=== PATIENT | male | born 1945 | race Caucasian/White ===

== ENCOUNTER → 2017-12-30 | Outpatient (CLI) | payer OTHER ==
[~2017-12-30] MED LIST: A/B OTIC15 ML; ADV100/50; ALD25 PO; ARICEPT5 MG PO; ATORVASTATIN CA40 M1 PO; COLACE100 MG PO; COR3 PO; COUMADIN5 MG PO; LASIX40 MG PO; LEVOTHYROXIN0.025 M2 PO; LYRICA75 M1; LYRICA75 M1 PO; METHADONE5 M1 PO; METOPROLOL TART25 M1 PO; NEU300 PO; OXYC PO; OXYCONTIN30 M1 PO; POTASSIUM CHLO10 MEQ PO; PRILOSEC OTC20 M1; PRILOSEC20 MG PO; PROMETH-CODEIN 65 ML PO; SIMVASTATIN10 M1 PO; SINGULAIR5 MG PO; SPIRIVA18 MC1 INH; TES100 PO; TRAZODONE HYDR150 MG PO; TRAZODONE HYDROCHLOR PO; VERAMYST27.5 MCG/1; ZES20 PO; [UNRECOGNIZED DRUG - OTHER] IJ
== END | disposition home or self-care (01) ==
LOC: US 14:00
DX: L03.115 Cellulitis of right lower limb (principal); L03.116 Cellulitis of left lower limb; R53.83 Other fatigue

== ENCOUNTER 2018-05-23 01:36 | Inpatient (IN) | payer OTHER ==
[2018-05-23] VITALS (7 sets, daily range): BP systolic 83–107; BP diastolic 46–64; Ht 175.3 cm; Wt 89.3 kg
[~2018-05-23] VITALS: Ht 175.3 cm; Wt 89.3 kg
[2018-05-23 02:32] LABS: PLATELET COUNT 239 x10^3mcL (130-400); RED CELL DISTRIBUTION WIDTH 15.8 % (11.5-14.5)
[2018-05-23 02:37] LABS: CALCIUM 9.2 mg/dL (8.5-10.1); CARBON DIOXIDE 29.6 mmol/L (21-32); CREATININE SERUM 1.3 mg/dL (0.7-1.3); POTASSIUM SERUM 3.1 mmol/L (3.5-5.1)
[2018-05-23 02:41] LABS: ALBUMIN 3.4 g/dL (3.4-5.0); BILIRUBIN TOTAL 1.33 mg/dL (0.20-1.00); TOTAL PROTEIN, SERUM 8.1 g/dL (6.4-8.2)
[2018-05-23 02:53] LABS: BAND NEUTROPHIL 0 % (0-10); BASOPHIL 0 % (0-2); MONOCYTE 11 % (0-7); SEGMENTED NEUTROPHILS 66 % (37-75)
[2018-05-23 02:56] LABS: PLATELET MORPHOLOGY PLATELETS NORMAL; rbc morphology (normal/abnorm) ABNORMAL (NORMAL)
[2018-05-23] MEDS ORDERED: TRAZODONE150 M1 PO (05:14)
[2018-05-23] MEDS ORDERED: ENDOCET1 TA4 PO (05:15)
[2018-05-23] MEDS ORDERED: ATIVAN1 MG PO (05:17)
[2018-05-23] MEDS ORDERED: GOOD SENSE ASPI81 M3 PO (05:17)
[2018-05-23] MEDS ORDERED: LOSARTAN POTASS25 M1 PO (05:18)
[2018-05-23] MEDS ORDERED: COUMADIN7.5 MG PO (05:19)
[2018-05-23] MEDS ORDERED: COUMADIN6 MG PO (05:20)
[2018-05-23] MEDS ORDERED: FUROSEMIDE80 MG PO (05:28)
[2018-05-23 05:47] LABS: MAGNESIUM 2.1 mg/dL (1.8-2.4); PHOSPHOROUS 3.3 mg/dL (2.5-4.9)
[2018-05-23 05:57] LABS: FREE T4 1.17 ng/dL (0.76-1.46); FREE THYROXINE INDEX 1.8 ug/dL (1.4-4.5); T4(THYROXINE) 4.9 ug/dL (4.7-13.3)
[2018-05-23 06:32] LABS: T3 TOTAL 0.88 ng/mL
[2018-05-23 09:33] LABS: BASOPHIL % 0.4 % (0-2); PLATELET COUNT 216 x10^3mcL (130-400)
[2018-05-23 09:42] LABS: RED CELL DISTRIBUTION WIDTH 17.4 % (11.5-14.5)
[2018-05-23 09:52] LABS: CALCIUM 8.6 mg/dL (8.5-10.1); CARBON DIOXIDE 29.3 mmol/L (21-32); CREATININE SERUM 1.5 mg/dL (0.7-1.3); POTASSIUM SERUM 3.4 mmol/L (3.5-5.1)
[2018-05-23 09:55] LABS: CHOLESTEROL/HDL RATIO 5.9
[2018-05-23 16:58] LABS: microscopic required? NO
[2018-05-23 17:07] LABS: urine erythrocyte NEGATIVE (NEGATIVE)
[2018-05-23 17:15] LABS: AMPHETAMINE QUAL UR NONE DETECTED (See below)
[2018-05-24 05:26] VITALS: BP 98/49
[2018-05-24 06:35] LABS: BASOPHIL % 0.5 % (0-2); PLATELET COUNT 214 x10^3mcL (130-400)
[2018-05-24 07:13] LABS: RED CELL DISTRIBUTION WIDTH 17.5 % (11.5-14.5)
[2018-05-24 09:15] VITALS: BP 90/58
[2018-05-24 10:51] LABS: CALCIUM 8.4 mg/dL (8.5-10.1); CARBON DIOXIDE 31.9 mmol/L (21-32); CREATININE SERUM 1.4 mg/dL (0.7-1.3); MAGNESIUM 2.4 mg/dL (1.8-2.4); PHOSPHOROUS 3.9 mg/dL (2.5-4.9); POTASSIUM SERUM 4.3 mmol/L (3.5-5.1)
[2018-05-24 13:51] VITALS: BP 95/53
[2018-05-24 17:16] VITALS: BP 95/50
[2018-05-24 20:43] VITALS: BP 95/51
[2018-05-25 04:30] VITALS: BP 123/57
[2018-05-25 06:55] LABS: CALCIUM 8.3 mg/dL (8.5-10.1); CHLORIDE SERUM 105 mmol/L (98-107); CREATININE SERUM 1.3 mg/dL (0.7-1.3); GLUCOSE SERUM 131 mg/dL (74-106); SODIUM SERUM 141 mmol/L (136-145)
[2018-05-25 06:57] LABS: BASOPHIL % 0.4 % (0-2); PLATELET COUNT 217 x10^3mcL (130-400)
[2018-05-25 07:04] LABS: RED CELL DISTRIBUTION WIDTH 17.3 % (11.5-14.5)
[2018-05-25 09:16] VITALS: BP 97/52
[2018-05-25 12:06] VITALS: BP 124/71
[2018-05-25] MEDS ORDERED: LASIX40 MG PO (14:44)
[2018-05-25] MEDS ORDERED: ARI10 PO (14:44)
[2018-05-25] MEDS ORDERED: AMIODARONE HCL200 MG PO ×2 (14:46→14:47)
== END 2018-05-25 16:47 | disposition home or self-care (01) | DRG 291 ==
LOC: ED 01:36 → DU 04:21
PROVIDERS: Emergency Medicine; Family Medicine Sports Medicine
DX: I50.43 Acute on chronic combined systolic (congestive) and diastolic (congestive) heart failure (principal); N17.0 Acute kidney failure with tubular necrosis; L03.116 Cellulitis of left lower limb; L03.115 Cellulitis of right lower limb; J44.1 Chronic obstructive pulmonary disease with (acute) exacerbation; I87.8 Other specified disorders of veins; I25.10 Atherosclerotic heart disease of native coronary artery without angina pectoris; I25.5 Ischemic cardiomyopathy; N18.3 Chronic kidney disease, stage 3 (moderate); E11.40 Type 2 diabetes mellitus with diabetic neuropathy, unspecified; E11.51 Type 2 diabetes mellitus with diabetic peripheral angiopathy without gangrene; K21.9 Gastro-esophageal reflux disease without esophagitis; K76.0 Fatty (change of) liver, not elsewhere classified; E03.9 Hypothyroidism, unspecified; F17.210 Nicotine dependence, cigarettes, uncomplicated; M47.9 Spondylosis, unspecified; G89.29 Other chronic pain; D64.9 Anemia, unspecified; F41.9 Anxiety disorder, unspecified; F03.90 Unspecified dementia, unspecified severity, without behavioral disturbance, psychotic disturbance, mood disturbance, and anxiety; E66.9 Obesity, unspecified; Z68.31 Body mass index [BMI] 31.0-31.9, adult; Z95.810 Presence of automatic (implantable) cardiac defibrillator; Z95.1 Presence of aortocoronary bypass graft; Z95.5 Presence of coronary angioplasty implant and graft; Z95.2 Presence of prosthetic heart valve; Z79.01 Long term (current) use of anticoagulants; Z79.891 Long term (current) use of opiate analgesic; Z91.19 Patient's noncompliance with other medical treatment and regimen; Z66 Do not resuscitate
CPT/HCPCS: 82962; 83880; 84439; 97110-GP; J0690; J1885; J1940; J2405; J2765; J3010; J3490; J7030; Q0092

== ENCOUNTER 2018-06-15 10:17 | Inpatient (IN) | payer OTHER ==
[~2018-06-15] VITALS: Ht 175.3 cm; Wt 95.2 kg
[~2018-06-15 10:17] MED LIST changes: +AMIODARONE HCL200 MG PO; +ARI10 PO; +ATIVAN1 MG PO; +COUMADIN6 MG PO; +COUMADIN7.5 MG PO; +ENDOCET1 TA4 PO; +FUROSEMIDE80 MG PO; +GOOD SENSE ASPI81 M3 PO; +LOSARTAN POTASS25 M1 PO; +TRAZODONE150 M1 PO
[2018-06-15 10:23] VITALS: Ht 175.3 cm; Wt 95.2 kg
[2018-06-15 11:53] LABS: BASOPHIL % 0.3 % (0-2); PLATELET COUNT 177 x10^3mcL (130-400)
[2018-06-15 12:49] LABS: CALCIUM 9.2 mg/dL (8.5-10.1); CARBON DIOXIDE 27.3 mmol/L (21-32); CREATININE SERUM 1.3 mg/dL (0.7-1.3); POTASSIUM SERUM 3.1 mmol/L (3.5-5.1)
[2018-06-15 12:53] LABS: BILIRUBIN TOTAL 1.26 mg/dL (0.20-1.00); TOTAL PROTEIN, SERUM 7.5 g/dL (6.4-8.2)
[2018-06-15 12:56] LABS: ALBUMIN 3.2 g/dL (3.4-5.0)
[2018-06-15 13:49] LABS: CHOLESTEROL/HDL RATIO 4.9; MAGNESIUM 1.9 mg/dL (1.8-2.4); PHOSPHOROUS 2.6 mg/dL (2.5-4.9)
[2018-06-15 13:56] LABS: FREE T4 1.23 ng/dL (0.76-1.46); FREE THYROXINE INDEX 2.2 ug/dL (1.4-4.5); T4(THYROXINE) 6.9 ug/dL (4.7-13.3)
[2018-06-15 14:31] VITALS: BP 132/61
[2018-06-15 14:38] LABS: T3 TOTAL 0.42 ng/mL
[2018-06-15 17:16] VITALS: BP 118/53
[2018-06-15 20:56] VITALS: BP 96/52
[2018-06-16 05:38] VITALS: BP 94/51
[2018-06-16 06:38] LABS: microscopic required? NO
[2018-06-16 07:14] LABS: AMPHETAMINE QUAL UR NONE DETECTED (See below)
[2018-06-16 07:42] LABS: urine erythrocyte NEGATIVE (NEGATIVE)
[2018-06-16 10:01] VITALS: BP 105/56
[2018-06-16 13:12] VITALS: BP 105/63
[2018-06-16 14:07] LABS: BASOPHIL % 0.3 % (0-2); PLATELET COUNT 180 x10^3mcL (130-400)
[2018-06-16 14:08] LABS: RED CELL DISTRIBUTION WIDTH 18.8 % (11.5-14.5)
[2018-06-16 14:14] LABS: CALCIUM 8.9 mg/dL (8.5-10.1); CARBON DIOXIDE 27.7 mmol/L (21-32); CREATININE SERUM 1.3 mg/dL (0.7-1.3); PHOSPHOROUS 3.3 mg/dL (2.5-4.9); POTASSIUM SERUM 3.8 mmol/L (3.5-5.1)
[2018-06-16 16:58] VITALS: BP 94/43
[2018-06-16 21:13] VITALS: BP 100/62
[2018-06-17 06:06] VITALS: BP 95/67
[2018-06-17 09:26] VITALS: BP 89/53
[2018-06-17 13:00] VITALS: BP 85/46
[2018-06-17 16:27] VITALS: BP 91/50
[2018-06-17 18:50] VITALS: BP 95/50
[2018-06-17 21:00] VITALS: BP 99/50
[2018-06-18 06:25] VITALS: BP 90/46
[2018-06-18 08:35] VITALS: BP 93/42
[2018-06-18 09:20] LABS: BASOPHIL % 0.3 % (0-2); PLATELET COUNT 157 x10^3mcL (130-400)
[2018-06-18 09:27] LABS: RED CELL DISTRIBUTION WIDTH 18.4 % (11.5-14.5)
[2018-06-18 09:40] VITALS: BP 88/41
[2018-06-18 09:47] LABS: CALCIUM 8.5 mg/dL (8.5-10.1); CARBON DIOXIDE 25.4 mmol/L (21-32); CREATININE SERUM 1.5 mg/dL (0.7-1.3); MAGNESIUM 1.9 mg/dL (1.8-2.4); PHOSPHOROUS 2.9 mg/dL (2.5-4.9); POTASSIUM SERUM 3.8 mmol/L (3.5-5.1)
[2018-06-18 10:00] VITALS: BP 114/63
[2018-06-18] MEDS ORDERED: Z5 PO (12:52)
[2018-06-18 13:27] VITALS: BP 101/51
== END 2018-06-18 13:52 | disposition home health service (06) | DRG 292 ==
LOC: ED 10:17 → DU 13:04
PROVIDERS: Emergency Medicine; Family Medicine; Internal Medicine
DX: I50.43 Acute on chronic combined systolic (congestive) and diastolic (congestive) heart failure (principal); E44.1 Mild protein-calorie malnutrition; I25.10 Atherosclerotic heart disease of native coronary artery without angina pectoris; I25.5 Ischemic cardiomyopathy; J44.9 Chronic obstructive pulmonary disease, unspecified; K60.2 Anal fissure, unspecified; E87.6 Hypokalemia; E03.9 Hypothyroidism, unspecified; F17.210 Nicotine dependence, cigarettes, uncomplicated; Z68.30 Body mass index [BMI] 30.0-30.9, adult; Z95.810 Presence of automatic (implantable) cardiac defibrillator; Z95.1 Presence of aortocoronary bypass graft; Z95.2 Presence of prosthetic heart valve; Z79.01 Long term (current) use of anticoagulants; Z79.82 Long term (current) use of aspirin; Z79.891 Long term (current) use of opiate analgesic; Z66 Do not resuscitate
CPT/HCPCS: 83880; 84439; 97110-GP; 97116-GP; 97530-GP; J1885; J1940; J7030; Q0092